=== PATIENT | female | born 1950 | race Two or more races ===

== ENCOUNTER 2022-01-30 05:51 | Day surgery (SDC) | payer OTHER ==
[~2022-01-30] VITALS: Ht 149.9 cm; Wt 64.4 kg
[~2022-01-30 05:51] MED LIST: AMLODI PO; CARVEDILOL25 M1 PO; COZAAR100 MG PO; METFORMIN HCL500 M3 PO; NASAL MIST126 ML PO; SIMVAST PO; VITAMIN D310 MCG/1 M PO
== END 2022-01-30 21:45 | disposition home or self-care (01) ==
LOC: CIR.AMB 05:51
PROVIDERS: ATTEND Specialist
DX: N95.0 Postmenopausal bleeding (principal); Z20.822 Contact with and (suspected) exposure to COVID-19; I10 Essential (primary) hypertension; E11.9 Type 2 diabetes mellitus without complications